=== PATIENT | female | born 1980 | race Caucasian/White ===

== ENCOUNTER 2016-10-20 18:49 | Outpatient (CLI) ==
[2016-10-20 19:03] LABS: BILIRUBIN,URINE Negative (NEGATIVE); KETONES,URINE Negative (NEGATIVE); LEUKOCYTE ESTERASE ,URINE 2+ (NEGATIVE); NITRITE,URINE Positive (NEGATIVE); PH,URINE 5.5 (5-9); PROTEIN,URINE 2+ (NEGATIVE); URINE, BLOOD 3+ (NEGATIVE)
[2016-10-20 19:08] LABS: ADD URINE MICROSCOPIC YES
[2016-10-20 19:09] LABS: BACTERIA,URINE 2+ (NOT PRESENT)
== END 2016-10-20 18:50 | disposition home or self-care (01) ==
LOC: LAB 18:49
PROVIDERS: ATTEND Family Medicine
DX: N30.90 Cystitis, unspecified without hematuria (principal)
CPT/HCPCS: 81001; 87086